=== PATIENT | female | born 1950 ===

== ENCOUNTER → 2018-08-26 | Outpatient (REF) | payer MEDICARE ==
[2018-08-26 12:28] LABS: PLATELET COUNT, AUTOMATED 201 K/uL (150-450)
[2018-08-26 12:32] LABS: INR 1.07
== END ==
LOC: ZZSENDIN 11:47
PROVIDERS: ATTEND Nurse Practitioner
DX: Z02.9 Encounter for administrative examinations, unspecified (principal)
CPT/HCPCS: 82040; 82247; 82310; 82374; 82435; 82565; 82947; 84075; 84132; 84155; 84295; 84450; 84460; 84520; 85025; 85610